=== PATIENT | male | born 1955 | race Caucasian/White ===

== ENCOUNTER → 2018-09-08 | Outpatient (CLI) | payer OTHER, BC | END | disposition home or self-care (01) | LOC: CARD 14:00 | DX: I07.1 Rheumatic tricuspid insufficiency (principal); I48.0 Paroxysmal atrial fibrillation; I10 Essential (primary) hypertension ==

== ENCOUNTER 2022-06-05 09:26 | Emergency (ER) | payer OTHER ==
[~2022-06-05] VITALS: Ht 167.6 cm; Wt 83.9 kg
== END 2022-06-05 11:33 | disposition home or self-care (01) ==
LOC: ED 09:26
DX: T84.89XA Other specified complication of internal orthopedic prosthetic devices, implants and grafts, initial encounter (principal); Y92.89 Other specified places as the place of occurrence of the external cause